=== PATIENT | female | born 1990 | race Caucasian/White ===

== ENCOUNTER 2017-08-13 16:00 | Emergency (ER) | payer OTHER ==
[~2017-08-13 16:00] MED LIST: ALBU4; ALBU4 PO; ALBU90OI; ALBU90OI INH; ALBU90OI6 INH; ALBU90OI61 INH; ALBUIS; ALBUTEROL; AMOX250 PO; AMPDEX10 PO; BCP; BENZ100A PO; BIRTH CONTROL; BIRTH CONTROL PILLS; BUPR100ER PO; Baclofen10 MG PO; Bactrim Ds Tab1 EACH PO; CEPH500 PO; CIPR500 PO; CLON.1 PO; CLON.2; CODACE30 PO; CYCL10 PO; Cipro500 MG PO; Crutch1 EACH MISC; DIPH50 PO; DOXY100 PO; FLUT44OIA; HYDACE5 PO; IBUP400 PO; IBUP600 PO; IBUP800 PO; LORTAB 10 MG-3473 ML PO; MELO7.5; MELO7.5 PO; MIRT15 PO; MONO-LINYAH1 EACH PO; MULVITMINE; Mobic15 MG PO; Monodox100 MG PO; NAPR500 PO; NAPR500EC PO; Naprosyn500 MG PO; ONDA4ODT MM; PERM5TC TOP; PRED10 PO; PROACE100 PO; PROM25 PO; Prozac20 MG; RXCODACET PO; RXLEVESTKI PO; SPACE CHAMBER1 EACH MC; SULTRIDS PO; TRAM50 PO; TY; Ultram50 MG PO; Veetids 500500 MG PO; Zithromax250 MG PO; Zofran Odt4 MG SL; [UNRECOGNIZED DRUG - REMARK]; [UNRECOGNIZED DRUG - REMARK]; [UNRECOGNIZED DRUG - REMARK]
[2018-05-10] MEDS ORDERED: SUPRAX400 MG PO (17:21)
[2018-05-10] MEDS ORDERED: Cleocin HCl300 MG PO (17:21)
[2018-05-10] MEDS ORDERED: IBUP600 PO (17:21)
[2018-05-10] MEDS ORDERED: NO ROUTINE MEDS (17:34)
== END 2017-08-13 16:57 | disposition left against medical advice (07) ==
LOC: ER 16:00
DX: Z53.21 Procedure and treatment not carried out due to patient leaving prior to being seen by health care provider (principal)

== ENCOUNTER 2017-10-15 16:48 | Emergency (ER) | payer OTHER ==
[~2017-10-15] VITALS: Ht 175.3 cm; Wt 59.9 kg
[2017-10-15] MEDS ORDERED: GABA300 PO (17:22)
[2018-05-10] MEDS ORDERED: SUPRAX400 MG PO (17:21)
[2018-05-10] MEDS ORDERED: IBUP600 PO (17:21)
[2018-05-10] MEDS ORDERED: Cleocin HCl300 MG PO (17:21)
[2018-05-10] MEDS ORDERED: NO ROUTINE MEDS (17:34)
== END 2017-10-15 18:10 | disposition home or self-care (01) ==
LOC: ER 16:48
DX: R51 Headache (principal); Z88.8 Allergy status to other drugs, medicaments and biological substances; Z88.1 Allergy status to other antibiotic agents; Z91.011 Allergy to milk products; Z79.899 Other long term (current) drug therapy; F41.9 Anxiety disorder, unspecified; F32.9 Major depressive disorder, single episode, unspecified; F17.200 Nicotine dependence, unspecified, uncomplicated
CPT/HCPCS: 96372; 99283; J0780; J1200; J1885

== ENCOUNTER 2018-03-26 17:02 | Emergency (ER) | payer OTHER ==
[~2018-03-26] VITALS: Ht 175.3 cm; Wt 61.2 kg
[~2018-03-26 17:02] MED LIST changes: +GABA300 PO
== END 2018-03-26 18:46 | disposition home or self-care (01) ==
LOC: ER 17:02
DX: S30.0XXA Contusion of lower back and pelvis, initial encounter (principal); W20.8XXA Other cause of strike by thrown, projected or falling object, initial encounter; Z88.8 Allergy status to other drugs, medicaments and biological substances; Z91.011 Allergy to milk products; Z79.899 Other long term (current) drug therapy; F41.9 Anxiety disorder, unspecified; F32.9 Major depressive disorder, single episode, unspecified; F17.210 Nicotine dependence, cigarettes, uncomplicated
CPT/HCPCS: 72170; 99283-25

== ENCOUNTER 2021-10-09 14:07 | Emergency (ER) | payer OTHER ==
[~2021-10-09] VITALS: Ht 167.6 cm; Wt 61.2 kg
[~2021-10-09 14:07] MED LIST changes: +Amoxicillin500 MG PO; +Cleocin HCl300 MG PO; +NAPR550 PO; +NO ROUTINE MEDS; +SUPRAX400 MG PO
[2021-10-09 15:09] LABS: Source, Urine Clean Catch
[2021-10-09 15:13] LABS: Bilirubin, Urine Neg (Neg); Blood, Urine Neg (Neg); Glucose Qualitative, Urine Neg (Neg); Ketones, Urine Neg (Neg); Leukocyte Esterase, Urine 1+ (Neg); Nitrite, Urine Neg (Neg); Protein, Urine Neg (Neg); Specific Gravity, Urine 1.015 (1.003-1.022); Urobilinogen, Urine NORM (Normal)
[2021-10-09] MEDS ORDERED: PRENATAL TABLE1 EAC2 PO (15:13)
[2021-10-09 15:46] LABS: Appearance, Urine Hazy (Clear); Color, Urine Amber (P-Yellow)
[2021-10-09 15:47] LABS: Bacteria Few /hpf; Red Blood Cells, Urine 0-2 /hpf (0-2); Squamous Epithelial Cells Rare /hpf (Few)
[2021-10-09 15:48] LABS: Amorphous Light (0-Heavy); Mucus Light (0-Heavy); Renal Epithelial Rare /hpf (0-Rare)
== END 2021-10-09 15:11 | disposition home or self-care (01) ==
LOC: ER 14:07
PROVIDERS: Physician Assistant
DX: O99.891 Other specified diseases and conditions complicating pregnancy (principal); R10.84 Generalized abdominal pain; O99.331 Smoking (tobacco) complicating pregnancy, first trimester; F17.210 Nicotine dependence, cigarettes, uncomplicated; Z88.7 Allergy status to serum and vaccine; Z88.6 Allergy status to analgesic agent; Z91.011 Allergy to milk products; Z79.899 Other long term (current) drug therapy; Z20.822 Contact with and (suspected) exposure to COVID-19
CPT/HCPCS: 81001; 81025; 87086; 99283

== ENCOUNTER → 2021-11-23 | Outpatient (CLI) | payer OTHER ==
[~2021-11-23] MED LIST changes: +PRENATAL TABLE1 EAC2 PO
[2021-11-24 20:06] LABS: CHLAMYDIA TRACHOMATIS, NAA Negative (Negative); HPV 16 Negative (Negative); HPV 18 Negative (Negative); HPV OTHER HR TYPES Negative (Negative)
== END | disposition home or self-care (01) ==
LOC: LAB 11:00 → LAB SHORT 11:00
PROVIDERS: Obstetrics & Gynecology
DX: Z01.419 Encounter for gynecological examination (general) (routine) without abnormal findings (principal); Z11.3 Encounter for screening for infections with a predominantly sexual mode of transmission
CPT/HCPCS: 87491; 87591; 87624; G0123

== ENCOUNTER → 2021-12-19 | Outpatient (CLI) | payer OTHER | END | disposition home or self-care (01) | LOC: LAB SHORT 09:46 → LAB 09:46 | DX: N39.0 Urinary tract infection, site not specified (principal) | CPT/HCPCS: 87086 ==

== ENCOUNTER 2022-01-04 14:09 | Emergency (ER) | payer OTHER ==
[~2022-01-04] VITALS: Ht 172.7 cm; Wt 56.7 kg
[2022-01-04] MEDS ORDERED: GABA400 PO (14:42)
[2022-01-04] MEDS ORDERED: LORA10ER PO (15:49)
[2022-01-04] MEDS ORDERED: Ventolin/Prove6.7 GM INH (15:49)
== END 2022-01-04 16:01 | disposition home or self-care (01) ==
LOC: ER 14:09
DX: J06.9 Acute upper respiratory infection, unspecified (principal); J45.909 Unspecified asthma, uncomplicated; F17.210 Nicotine dependence, cigarettes, uncomplicated; Z33.1 Pregnant state, incidental; Z79.899 Other long term (current) drug therapy; Z88.7 Allergy status to serum and vaccine; Z88.6 Allergy status to analgesic agent; Z91.011 Allergy to milk products
CPT/HCPCS: 87081; 87430; 99283

== ENCOUNTER → 2022-05-03 | Outpatient (CLI) | payer OTHER ==
[~2022-05-03] MED LIST changes: +GABA400 PO; +LORA10ER PO; +Ventolin/Prove6.7 GM INH
== END | disposition home or self-care (01) ==
LOC: LAB SHORT 10:00 → LAB 10:00
DX: O09.893 Supervision of other high risk pregnancies, third trimester (principal)
CPT/HCPCS: 87081; 87150

== ENCOUNTER 2022-05-09 11:14 | Inpatient (IN) | payer OTHER ==
[~2022-05-09] VITALS: Ht 175.3 cm; Wt 66.8 kg
[2022-05-09 11:46] LABS: BASOPHILS ABSOLUTE AUTO 0.05 K/mm3 (0.00-0.23); BASOPHILS PERCENT AUTO 0 % (0-2); EOSINOPHILS ABSOLUTE AUTO 0.03 K/mm3 (0.00-0.68); EOSINOPHILS PERCENT AUTO 0 % (0-6); Hematocrit 40.4 % (33.0-51.0); Hemoglobin 13.6 g/dL (11.5-16.0); IMMATURE GRAN ABSOLUTE AUTO 0.26 K/mm3 (0.00-0.10); IMMATURE GRAN PERCENT AUTO 2 % (0-1); LYMPHOCYTES ABSOLUTE AUTO 3.24 K/mm3 (0.84-5.20); LYMPHOCYTES PERCENT AUTO 19 % (21-46); MONOCYTES ABSOLUTE AUTO 1.01 K/mm3 (0.16-1.47); MONOCYTES PERCENT AUTO 6 % (4-13); Mean Corpuscular HGB 28.8 pg (26.0-34.0); Mean Corpuscular HGB Conc 33.7 g/dL (31.5-36.5); Mean Corpuscular Volume 86 fL (80-100); Mean Platelet Volume 11.9 fL (9.1-12.4); NEUTROPHILS ABSOLUTE AUTO 12.42 K/mm3 (1.96-9.15); NEUTROPHILS PERCENT AUTO 73 % (41-73); NRBC ABSOLUTE 0.02 K/mm3 (0.00-0.02); NRBC Auto 0.1 /100 WBC (0.0-0.2); Platelet Count 238 K/mm3 (150-400); RDW Standard Deviation 40.6 fL (35.1-46.3); Red Blood Cell Count 4.72 M/mm3 (3.80-5.20); White Blood Cell Count 17.01 K/mm3 (4.00-11.30)
--- NOTE | 2022-05-09 12:22 | NUR ---
ASSUMED CARE OF PATIENT. REPORT FROM JERMAINE
[2022-05-10 05:54] LABS: BASOPHILS ABSOLUTE AUTO 0.03 K/mm3 (0.00-0.23); BASOPHILS PERCENT AUTO 0 % (0-2); EOSINOPHILS ABSOLUTE AUTO 0.11 K/mm3 (0.00-0.68); EOSINOPHILS PERCENT AUTO 1 % (0-6); Hematocrit 41.3 % (33.0-51.0); Hemoglobin 13.6 g/dL (11.5-16.0); IMMATURE GRAN ABSOLUTE AUTO 0.12 K/mm3 (0.00-0.10); IMMATURE GRAN PERCENT AUTO 1 % (0-1); LYMPHOCYTES ABSOLUTE AUTO 2.47 K/mm3 (0.84-5.20); LYMPHOCYTES PERCENT AUTO 24 % (21-46); MONOCYTES ABSOLUTE AUTO 0.71 K/mm3 (0.16-1.47); MONOCYTES PERCENT AUTO 7 % (4-13); Mean Corpuscular HGB 28.8 pg (26.0-34.0); Mean Corpuscular HGB Conc 32.9 g/dL (31.5-36.5); Mean Corpuscular Volume 87 fL (80-100); Mean Platelet Volume 11.7 fL (9.1-12.4); NEUTROPHILS ABSOLUTE AUTO 6.89 K/mm3 (1.96-9.15); NEUTROPHILS PERCENT AUTO 67 % (41-73); Platelet Count 237 K/mm3 (150-400); RDW Coefficient Variation 13.2 % (11.7-14.2); RDW Standard Deviation 42.3 fL (35.1-46.3); Red Blood Cell Count 4.73 M/mm3 (3.80-5.20); White Blood Cell Count 10.33 K/mm3 (4.00-11.30)
[2022-05-10 09:11] LABS: HIV AB/P24 AG SCREEN Non Reactive (Non Reactive)
--- NOTE | 2022-05-10 14:14 | NUR ---
MEDELA BREAST PUMP RX RECEIEVED AND PUMP GIVEN TO PATIENT.
[2022-05-12 03:12] LABS: HEPATITIS C QUANTITATION HCV Not Detected IU/mL (.)
== END 2022-05-10 23:50 | disposition home or self-care (01) | DRG 806 ==
LOC: OBS 11:14 → BC 11:15 → OBS 11:31 → BC 11:32
PROVIDERS: ADMIT Obstetrics & Gynecology
PROC: 10E0XZZ Delivery of Products of Conception, External Approach (ICD-10-PCS; principal; 2022-05-09)
PROC: 10907ZC Drainage of Amniotic Fluid, Therapeutic from Products of Conception, Via Natural or Artificial Opening (ICD-10-PCS; 2022-05-09)
DX: O60.13X0 Preterm labor second trimester with preterm delivery third trimester, not applicable or unspecified (principal); O99.324 Drug use complicating childbirth; Z37.0 Single live birth; O99.52 Diseases of the respiratory system complicating childbirth; J45.909 Unspecified asthma, uncomplicated; F12.90 Cannabis use, unspecified, uncomplicated; B19.20 Unspecified viral hepatitis C without hepatic coma; O99.62 Diseases of the digestive system complicating childbirth; K21.9 Gastro-esophageal reflux disease without esophagitis; Z20.822 Contact with and (suspected) exposure to COVID-19; O99.334 Smoking (tobacco) complicating childbirth; F17.210 Nicotine dependence, cigarettes, uncomplicated; O99.344 Other mental disorders complicating childbirth; F41.9 Anxiety disorder, unspecified; F32.A Depression, unspecified; Z3A.35 35 weeks gestation of pregnancy; Z67.40 Type O blood, Rh positive; Z98.890 Other specified postprocedural states; Z88.7 Allergy status to serum and vaccine; Z91.011 Allergy to milk products; Z79.899 Other long term (current) drug therapy
CPT/HCPCS: 36415; 85025; 86592; 86850; 86900; 86901; 87389; 87522; A9270; J0290; J1885; J2590; J7120

== ENCOUNTER 2022-10-14 10:08 | Emergency (ER) | payer OTHER ==
[~2022-10-14] VITALS: Ht 175.3 cm; Wt 61.2 kg
[2022-10-14] MEDS ORDERED: IBU800 MG PO (10:49)
[2022-10-14] MEDS ORDERED: TRAM50 PO (10:49)
[2022-10-14] MEDS ORDERED: Cleocin HCl150 MG PO (10:49)
== END 2022-10-14 11:17 | disposition home or self-care (01) ==
LOC: ER 10:08
DX: K04.7 Periapical abscess without sinus (principal); F17.210 Nicotine dependence, cigarettes, uncomplicated; Z88.7 Allergy status to serum and vaccine; Z88.6 Allergy status to analgesic agent; Z91.011 Allergy to milk products; Z79.899 Other long term (current) drug therapy
CPT/HCPCS: A9270

== ENCOUNTER → 2023-09-17 | Outpatient (CLI) | payer OTHER ==
[~2023-09-17] MED LIST changes: +Cleocin HCl150 MG PO; +IBU800 MG PO
== END | disposition home or self-care (01) ==
LOC: LAB 11:30 → LAB SHORT 11:30
DX: N75.0 Cyst of Bartholin's gland (principal)
CPT/HCPCS: 87070; 87075; 87205

== ENCOUNTER → 2024-09-02 | Outpatient (CLI) | payer OTHER ==
[~2024-09-02] MED LIST changes: +Flonase 0.05% N16 GM; +SERT100 PO; +ZYRTEC10 M2 PO
[2024-09-02 17:32] LABS: Bacterial Vaginosis PCR Positive (NEGATIVE); Candida Group, PCR NOT DETECTED (NOT DETECT); Candida glabrata-krusei, PCR DETECTED (NOT DETECT)
== END | disposition home or self-care (01) ==
LOC: LAB 15:44 → LAB SHORT 15:44
PROVIDERS: Physician Assistant
DX: N89.8 Other specified noninflammatory disorders of vagina (principal)
CPT/HCPCS: 81515